=== PATIENT | male | born 1975 | race Caucasian/White ===

== ENCOUNTER 2017-06-15 09:11 | Day surgery (SDC) | payer OTHER, MEDICAID ==
[2017-06-15] MEDS ORDERED: Sodium Chloride 0.9% 10 ML Syringe FLUSH PRN (09:30)
[2017-06-15] MEDS ORDERED: Lactated Ringers 1,000 ML IV SCH (09:30)
--- NOTE | 2017-06-15 10:49 | PCM.HPR ---
H & P Addendum review - H & P Addendum Review Date of Original H & P: 05/26/17 Date Reviewed: 06/15/17 Time Reviewed: 10:48 Patient was Examined: No Changes (Ok to proceed with colonoscopy for FH Colon Ca /polyps)
[2017-06-15] MEDS ORDERED: fentaNYL 100 MCG/2 ML SDV ONE ×2 (10:57→11:02)
[2017-06-15] MEDS ORDERED: Midazolam 1 MG/ML 2 ML SDV ONE ×2 (10:57→11:02)
[2017-06-15] MEDS ORDERED: Propofol 200 MG/20 ML SDV ONE ×2 (10:58→11:02)
--- NOTE | 2017-06-15 11:35 | PCM.OPNOTE ---
- General Post-Op/Procedure Note Date of Surgery/Procedure: 06/15/17 Operative Procedure(s): Colonoscopy Findings: Normal Pre Op Diagnosis: FH Colon CA/polyps Post-Op Diagnosis: Same Anesthesia Technique: MAC Primary Surgeon: Hernando Jarrell Anesthesia Provider: Alma HAYS in mLs: 0 Complications: None Condition: Good
--- NOTE | 2017-06-15 15:40 | OR ---
Date of Procedure: 06/15/2017 PREOPERATIVE DIAGNOSES: Family history of colon cancer and polyps. POSTOPERATIVE DIAGNOSIS: Normal colonoscopy. PROCEDURE: Colonoscopy. ANESTHESIA: IV sedation. PROCEDURE IN DETAIL: The patient was brought to the procedure room where he was placed on his left side and IV sedation administered. Digital rectal exam was performed, which was normal. Colonoscope was inserted and advanced to the level of the cecum. Initially, I had difficulty verifying that this is the cecum since there was a band near the ileocecal valve, and the appendiceal lumen was not visualized because of previous appendectomy. I was able to identify the terminal ileum and intubate this for a couple of centimeters and small bowel mucosa was present. Prep was very good and surfaces were well visualized. Upon withdrawing the scope, the ascending, transverse, and descending colon were normal in appearance. Sigmoid colon and rectum were normal. Retroflexion was normal. Air was removed and the scope withdrawn. The patient tolerated the procedure well, returned to recovery in stable condition. Recommend routine colonoscopy in 3 years since that is what he has been told, he needed done by his previous providers. KARI MANNING MD /[id number]
== END 2017-06-15 12:39 | disposition home or self-care (01) ==
LOC: LL.SDS 09:11
PROVIDERS: ATTEND Surgery
DX: Z12.11 Encounter for screening for malignant neoplasm of colon (principal); Z83.71 Family history of colonic polyps; Z80.0 Family history of malignant neoplasm of digestive organs
CPT/HCPCS: 45378; J2250; J2704; J3010; 00811

== ENCOUNTER 2018-07-19 07:49 | Day surgery (SDC) | payer OTHER, BC ==
[~2018-07-19 07:49] MED LIST: Lactated Ringers 1,000 ML IV SCH; Sodium Chloride 0.9% 10 ML Syringe FLUSH PRN
[2018-07-19] MEDS ORDERED: Lactated Ringers 1,000 ML IV SCH (08:00)
[2018-07-19] MEDS ORDERED: Sodium Chloride 0.9% 10 ML Syringe FLUSH PRN (08:00)
[2018-07-19] MEDS ORDERED: Midazolam 1 MG/ML 2 ML SDV ONE ×2 (08:10→09:00)
[2018-07-19] MEDS ORDERED: fentaNYL 100 MCG/2 ML SDV ONE ×2 (08:10→09:00)
[2018-07-19] MEDS ORDERED: Propofol 200 MG/20 ML SDV ONE ×2 (08:11→09:00)
[2018-07-19] MEDS ORDERED: Lidocaine 2% 5 ML SDV ONE (09:00)
--- NOTE | 2018-07-19 09:08 | PCM.PN ---
- General Info Date of Service: 07/19/18 - Review of Systems Systems Review Comment:: 43 y/o male with history of gastritis and now having abdominal pain despite use of Omeprazole. He is here for EGD. I have discussed the proposed EGD with the patient. He understands indications and risks and agrees to proceed. - Patient Data Vitals - Most Recent: Last Vital Signs Temp 98.4 F 07/19/18 08:25 Pulse 71 07/19/18 08:25 Resp 20 07/19/18 08:25 BP 145/96 H 07/19/18 08:25 Pulse Ox 100 07/19/18 08:25 Weight - Most Recent: 94.347 kg Med Orders - Current: Current Medications Lactated Ringer's (Ringers, Lactated) 1,000 mls @ 125 mls/hr IV ASDIRECTED VIKTORIYA Sodium Chloride (Saline Flush) 10 ml FLUSH ASDIRECTED PRN PRN Reason: Keep Vein Open Discontinued Medications Fentanyl (Sublimaze) Confirm Administered Dose 100 mcg .ROUTE .STK-MED ONE Stop: 07/19/18 08:11 Lactated Ringer's (Ringers, Lactated) 1,000 mls @ 125 mls/hr IV ASDIRECTED VIKTORIYA Midazolam HCl (Versed 1 Mg/Ml) Confirm Administered Dose 2 mg .ROUTE .STK-MED ONE Stop: 07/19/18 08:11 Propofol (Diprivan 20 Ml) Confirm Administered Dose 200 mg .ROUTE .STK-MED ONE Stop: 07/19/18 08:12 Sodium Chloride (Saline Flush) 10 ml FLUSH ASDIRECTED PRN PRN Reason: Keep Vein Open - Problem List Review Problem List Initiated/Reviewed/Updated: Yes - My Orders Last 24 Hours: My Active Orders 07/19/18 08:00 Patient Status [ADT] Routine Peripheral IV Care [RC] . DIRECTED Verify Patient Consent Obtain [RC] ASDIRECTED Lactated Ringers [Ringers, Lactated] 1,000 ml IV ASDIRECTED Sodium Chloride 0.9% [Saline Flush] 10 ml FLUSH ASDIRECTED PRN Peripheral IV Insertion Adult [OM.PC] Routine - Assessment Assessment:: Abdominal Pain - Plan Plan:: EGD
--- NOTE | 2018-07-19 09:36 | PCM.OPNOTE ---
- General Post-Op/Procedure Note Date of Surgery/Procedure: 07/19/18 Operative Procedure(s): EGD with Biopsy Findings: Small Hiatal hernia with mild irregularity of GE Jct. 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 Gastritis. Reflux Esophagitis. Duodenal Diverticulum Anesthesia Technique: MAC Primary Surgeon: Robbie Fang Pathology: Biopsies of Duodenum, Gastric mucosa, GE Jct Output, Urine Amount: 0 EBL in mLs: 4 Complications: None Condition: Good
--- NOTE | 2018-07-19 11:51 | OR ---
Date of Procedure: 07/19/2018 REFERRING PROVIDER: Guadalupe West PA-C PREOPERATIVE DIAGNOSIS: Abdominal pain. POSTOPERATIVE DIAGNOSIS: Hiatal hernia with reflux esophagitis, gastritis, and duodenal diverticulum. OPERATION PERFORMED: Esophagogastroduodenoscopy with biopsy. INDICATIONS FOR SURGERY: This 43-year-old male has a history of gastritis and abdominal pain. He continues to have these symptoms despite the use of omeprazole and he comes for upper endoscopy. FINDINGS: The patient does have a small hiatal hernia and at the GE junction, there was slight irregularity of this junction for a distance of approximately 1 cm. There was no exudate seen. Gastric mucosa shows mild hyperemia in the antrum, although no ulceration or other visible abnormality is noted. The duodenum appears normal except for a small duodenal diverticulum located off the first portion of the duodenum. This does not appear to be acutely inflamed and no food or other abnormality was seen within the lumen of the diverticulum. DESCRIPTION OF PROCEDURE: The patient was taken to the operating room. He was given intravenous sedation and his throat was topically anesthetized. The esophagus was intubated with the Olympus gastroscope. This was carefully advanced down through the esophagus, stomach, and into the duodenum where examination to the 3rd portion was performed. Because of the patient's symptoms, random biopsies of the duodenum were taken. Careful examination of the duodenum was performed and the scope was withdrawn back into the stomach. Biopsies of the gastric antrum were taken to rule out H. pylori. Full examination of the stomach including retroflexed examination of the fundus was carried out and biopsies of the upper gastric mucosa are also taken. The GE junction is then carefully examined and biopsies of the irregular GE junction are obtained as well. The scope was then removed re-examining the esophagus during its withdrawal. The patient was then taken from the operating room in satisfactory condition. ESTIMATED BLOOD LOSS: 4 mL. COMPLICATIONS: None. PROGNOSIS: Good. KARI Fang MD /[id number]
== END 2018-07-19 10:40 | disposition home or self-care (01) ==
LOC: LL.SDS 07:49
PROVIDERS: ATTEND Surgery
DX: K29.50 Unspecified chronic gastritis without bleeding (principal); K57.10 Diverticulosis of small intestine without perforation or abscess without bleeding; K21.0 Gastro-esophageal reflux disease with esophagitis; K44.9 Diaphragmatic hernia without obstruction or gangrene; Z79.899 Other long term (current) drug therapy; F41.9 Anxiety disorder, unspecified
CPT/HCPCS: 43239; J2001; J2250; J2704; J3010